=== PATIENT | female | born 1950 | race Caucasian/White ===

== ENCOUNTER 2023-04-22 10:32 | Emergency (ER) | payer MEDICARE, OTHER, SELFPAY ==
[2023-04-22 10:58] VITALS: BP 133/66; PULSE 80; RESP 16; TEMP 36.7; O2SAT 96
--- NOTE | 2023-04-22 11:01 | ED.URI ---
HPI - URI/Sore Throat General Chief Complaint: Upper Respiratory Infection Stated Complaint: SOB Time Seen by Provider: 04/22/23 11:01 Source: patient Mode of arrival: ambulatory Limitations: no limitations History of Present Illness HPI Narrative: 73-year-old female presents with complaint of cough, nasal congestion, sinus drainage since yesterday. Reports fatigue, body aches, headaches. Afebrile. States was sick First and did not have any testing done. History of asthma. States coughing up brown sputum. States I know I have an infection because of brown sputum . No chest pain or shortness breath. All systems reviewed and negative except as noted above. Related Data Home Medications Medication Instructions Recorded Confirmed amlodipine 5 mg tablet 5 mg PO DAILY 04/22/23 04/22/23 escitalopram oxalate 10 mg tablet 10 mg PO DAILY 04/22/23 04/22/23 famotidine 20 mg tablet 20 mg PO DAILY 04/22/23 04/22/23 fluticasone fur. 200 mcg-umeclid 2 inh inhalation DAILY 04/22/23 04/22/23 62.5 mcg-vilant 25 mcg inhalat.powder (Trelegy Ellipta) gabapentin 100 mg capsule 100 mg PO TID 04/22/23 04/22/23 hydralazine 25 mg tablet 25 mg PO DAILY 04/22/23 04/22/23 hydrochlorothiazide 25 mg tablet 25 mg PO DAILY 04/22/23 04/22/23 lansoprazole 30 mg capsule,delayed 30 mg PO DAILY 04/22/23 04/22/23 release lisinopril 40 mg tablet 40 mg PO DAILY 04/22/23 04/22/23 nebivolol 10 mg tablet 10 mg PO DAILY 04/22/23 04/22/23 telmisartan 80 mg tablet 80 mg PO DAILY 04/22/23 04/22/23 Allergies Allergy/AdvReac Type Severity Reaction Status Date / Time latex Allergy Intermediate LIP Verified 04/22/23 10:50 SWELLING acetaminophen AdvReac Mild NAUSEA Verified 04/22/23 10:50 hydrocodone AdvReac Mild NAUSEA Verified 04/22/23 10:50 indomethacin AdvReac Mild HIVES Verified 04/22/23 10:50 montelukast AdvReac Mild Rash Verified 04/22/23 10:50 simvastatin AdvReac Mild Rash Verified 04/22/23 10:50 PEANUTS AdvReac Mild RASH Uncoded 04/22/23 10:50 Review of Systems Review of Systems: CONSTITUTIONAL: Denies fever, chills, or sweats. reports fatigue EYES: Denies visual changes, redness, or discharge. ENT: Reports rhinorrhea, congestion, sore throat. Denies otalgia. CARDIOVASCULAR: Denies chest pain, palpitations, or edema. RESPIRATORY: reports cough. Denies dyspnea. GASTROINTESTINAL: Denies abdominal pain, nausea, vomiting, or diarrhea. GENITOURINARY: Denies dysuria or hematuria. SKIN: Denies rash or itching. MUSCULOSKELETAL: Denies back pain, joint pain. Reports myalgia. NEUROLOGIC: Denies headache, numbness, or weakness. PSYCHIATRIC: Denies anxiety or depression. All other systems reviewed are negative, except as documented in HPI. PMFSH Comments At time of signature, agree with nursing past medical, surgical, social and family history. There is no relevant family history pertinent to the presenting complaint. Exam Narrative: GENERAL: This is a well-nourished, well-developed patient, in no apparent distress. HEAD: normocephalic, atraumatic. EYES: PERRL. Sclera clear/white. Vision is grossly intact. EARS: External ears normal, auditory canals clear and without drainage, TMs normal without perforation. Hearing grossly intact. NOSE: External nose normal with clear nasal drainage, erythema to nares. THROAT: Mucous membranes moist, Mild erythema with postnasal drainage. No swelling or exudates. NECK: Neck supple, non-tender without lymphadenopathy, masses or thyromegaly. CARDIOVASCULAR: Regular rate and rhythm without murmurs, gallops, or rubs. RESPIRATORY: Rhonchi to lower lung jeffery bilaterally, otherwise clear Breath sounds equal bilaterally. No wheezes, rales SKIN: warm, Dry, intact with no suspicious lesions or rash, good texture and turgor. NEURO: awake, alert, and oriented to person, place and time. There were no obvious focal neurologic abnormalities. EXTREMITIES: No joint tenderness, effusion, or edema noted.
== END 2023-04-22 11:41 | disposition home or self-care (01) ==
PROVIDERS: Emergency Provider Nurse Practitioner Family; PCP Hospitalist
DX: J06.9 Acute upper respiratory infection, unspecified (principal); R05.9 Cough, unspecified; Z20.822 Contact with and (suspected) exposure to COVID-19; J45.909 Unspecified asthma, uncomplicated; E78.00 Pure hypercholesterolemia, unspecified; I10 Essential (primary) hypertension; K21.9 Gastro-esophageal reflux disease without esophagitis; M19.90 Unspecified osteoarthritis, unspecified site; E03.9 Hypothyroidism, unspecified
CPT/HCPCS: 87081; 87426; 87804; 87880; 99213; C9803; G0463